=== PATIENT | male | born 1995 | race African-American/Black ===

== ENCOUNTER 2019-10-02 14:34 | Outpatient (CLI) | payer OTHER | END 2019-10-02 21:53 | disposition home or self-care (01) | LOC: US 14:34 | DX: N50.89 Other specified disorders of the male genital organs (principal) ==

== ENCOUNTER 2020-10-20 15:26 | Outpatient (CLI) | payer OTHER | END 2020-10-20 18:00 | disposition home or self-care (01) | LOC: LABW 15:26 | PROVIDERS: ATTEND Internal Medicine | DX: R53.83 Other fatigue (principal) | CPT/HCPCS: 36415; 82550; 82607; 82728; 83540; 83550; 84439; 84443; 87535; G0432 ==

== ENCOUNTER 2020-10-26 08:14 | Outpatient (CLI) | payer OTHER | END 2020-10-26 23:59 | disposition home or self-care (01) | LOC: CT 08:14 | PROVIDERS: ATTEND Internal Medicine | DX: R63.4 Abnormal weight loss (principal) | CPT/HCPCS: Q9963 ==

== ENCOUNTER 2020-11-24 10:58 | Outpatient (CLI) | payer OTHER ==
[2020-11-24 11:39] LABS: PLATELET COUNT 226 K/uL (142-355)
[2020-11-24 11:53] LABS: POTASSIUM 4.4 mmol/L (3.6-5.2)
== END 2020-11-24 20:37 | disposition home or self-care (01) ==
LOC: LABW 10:58
PROVIDERS: ATTEND Internal Medicine
DX: R31.0 Gross hematuria (principal); R53.83 Other fatigue
CPT/HCPCS: 36415; 80053; 81000; 82330; 82550; 83036; 83516; 84402; 84403; 85027; 85652; 86225; 86255

== ENCOUNTER 2022-03-12 23:10 | Emergency (ER) | payer OTHER ==
[~2022-03-12] VITALS: Ht 180.3 cm; Wt 99.8 kg
[2022-03-12 23:56] LABS: PLATELET COUNT 249 K/uL (142-355)
[2022-03-13 00:02] LABS: POTASSIUM 3.9 mmol/L (3.6-5.2)
[2022-03-13 00:51] VITALS: BP 128/70; TEMP 98.2
== END 2022-03-13 00:51 | disposition home or self-care (01) ==
LOC: ED 23:10
PROVIDERS: Emergency Medicine
DX: R20.2 Paresthesia of skin (principal); R51.9 Headache, unspecified
CPT/HCPCS: 80053; 83735; 85027; 93005; 99283

== ENCOUNTER 2022-09-23 12:54 | Outpatient (CLI) | payer OTHER | END 2022-09-23 19:00 | disposition home or self-care (01) | LOC: MRI 12:54 | PROVIDERS: ATTEND Physician Assistant | DX: R20.2 Paresthesia of skin (principal) | CPT/HCPCS: 36415; 82565; 84520; A9576 ==

== ENCOUNTER 2022-10-13 09:04 | Outpatient (CLI) | payer OTHER | END 2022-10-13 19:43 | disposition home or self-care (01) | LOC: US 09:04 | PROVIDERS: ATTEND Nurse Practitioner | DX: K21.9 Gastro-esophageal reflux disease without esophagitis (principal); R10.11 Right upper quadrant pain ==

== ENCOUNTER 2022-12-26 10:09 | Outpatient (CLI) | payer OTHER | END 2022-12-26 23:01 | disposition home or self-care (01) | LOC: RESP 10:09 | PROVIDERS: ATTEND Internal Medicine Cardiovascular Disease | DX: R03.0 Elevated blood-pressure reading, without diagnosis of hypertension (principal); R20.2 Paresthesia of skin ==